=== PATIENT | male | born 1970 | race Caucasian/White ===

== ENCOUNTER 2018-06-23 06:53 | Day surgery (SDC) | payer OTHER ==
[2018-06-23] MEDS ORDERED: ONDANSETRON HCL INJ/PF 4 MG/2 ML SDV ONE (07:26)
[2018-06-23] MEDS ORDERED: DIPHENHYDRAMINE HCL 50 MG/ML VIAL ONE (07:26)
[2018-06-23] MEDS ORDERED: EPINEPHRINE INJ 1 MG/10 ML DISP.SYRIN ONE (07:27)
[2018-06-23] MEDS ORDERED: FLUMAZENIL INJ 0.5 MG/5 ML VIAL ONE (07:27)
[2018-06-23] MEDS ORDERED: NALOXONE HCL INJ/PF 0.4 MG/1 ML SDV ONE (07:27)
[2018-06-23] MEDS ORDERED: GLUCAGON,HUMAN RECOMB 1 MG INJ ONE (07:27)
[2018-06-23] MEDS: MIDAZOLAM 2 MG/2 ML INJ ONE ×3 (08:14→08:22)
[2018-06-23] MEDS: FENTANYL CITRATE INJ/PF 100 MCG/2 ML AMPUL ONE ×3 (08:18→08:26)
--- NOTE | 2018-06-23 08:47 | Operative Report ---
Nonrecallable Operative Report DATE OF SURGERY: 06/23/18 PREOPERATIVE DIAGNOSIS: rectal bleeding POSTOPERATIVE DIAGNOSIS: rectal bleeding OPERATION: colonoscopy SURGEON: GLADYS ANDERSON ANESTHESIA: Moderate Sedation TISSUE REMOVED OR ALTERED: none COMPLICATIONS: none ESTIMATED BLOOD LOSS: 0 INTRAOPERATIVE FINDINGS: diffuse diverticulosis. internal hemorrhoids PROCEDURE: see dictation
--- NOTE | 2018-06-23 08:49 | Discharge Summary ---
Discharge Summary (SDC) - Discharge Final Diagnosis: diverticulosis internal hemorrhoids Date of Surgery: 06/23/18 Condition: Good Forms: Sedation D/C Instructions, Discharge POC-Surgical Service Treatment or Instructions: resume regular diet metamucil Referrals: GLADYS ANDERSON MD [ACTIVE STAFF] - Discharge Diet: As Tolerated Discharge Activity: Activity As Tolerated Report the Following to Your Physician Immediately: Increase in Pain, Fever over 101 Degrees
--- NOTE | 2018-06-23 09:38 | OPERATIVE REPORT E ---
Operative Report NAME: MARGARITA MANNING : 1970 AGE: 47Y DATE OF SURGERY: 06/23/2018 ROOM: PREOPERATIVE DIAGNOSIS: Rectal bleeding. POSTOPERATIVE DIAGNOSIS: Diffuse diverticulosis and internal hemorrhoids. OPERATIVE PROCEDURE: Colonoscopy. SURGEON: GLADYS ANDERSON M.D. ANESTHESIA: IV sedation. PROCEDURE: The patient was brought to the endoscopy suite in an awake and alert, stable condition. After appropriate time out, he was given IV sedation with Versed and Fentanyl. He was placed in a left lateral decubitus position and we utilized the Olympus colonoscope. The scope was placed easily into the rectum after a digital exam which was normal. After placement of the colonoscope into the rectum we traversed the rectum, sigmoid colon, and descending colon up to the splenic flexure, the transverse colon was visualized, the hepatic flexure, and down to the cecum. The appendiceal orifice was identified. We then slowly withdrew the scope over a period of approximately 6 minutes and visualized the mucosa of the entire colon. There was diffuse diverticulosis noted both on the right side and the descending side. The transverse colon was free from diverticulosis. There were no polyps that were identified. As we withdrew the colonoscope we observed the ascending colon, transverse colon, hepatic flexure, splenic flexure, descending colon, and sigmoid and rectum. Again, there was diffuse diverticulosis in the sigmoid, descending colon, and ascending colon, but the transverse colon was spared. Upon withdrawal from the rectum we noted grade 2 internal hemorrhoids that were not bleeding. The scope was withdrawn, which completed the procedure. FINDINGS: Diffuse diverticulosis and internal hemorrhoids. PLAN: The patient will be started on dietary management for his diverticulosis, including increased fiber using Metamucil and increased fiber in his diet. He was given precautions. DICTATING PHYSICIAN: GLADYS ANDERSON M.D. [id number] PHY#: [id number] ID: [id number] JOB#: [id number] ACCT: [id number] cc:GLADYS ANDERSON M.D. >
[2018-06-23 10:21] VITALS: BP 139/72
== END 2018-06-23 09:50 | disposition home or self-care (01) ==
LOC: END 06:53
PROVIDERS: ATTEND Surgery
DX: K57.30 Diverticulosis of large intestine without perforation or abscess without bleeding (principal); K64.8 Other hemorrhoids; K62.5 Hemorrhage of anus and rectum; E78.00 Pure hypercholesterolemia, unspecified; F17.210 Nicotine dependence, cigarettes, uncomplicated; Z79.899 Other long term (current) drug therapy
CPT/HCPCS: 45378; J2250; J3010; J0171; J1200; J1610; J2310; J2405; J3490